=== PATIENT | female | born 1970 | race Caucasian/White ===

== ENCOUNTER 2019-05-07 16:32 | Inpatient (IN) | payer OTHER ==
[2019-05-07] MEDS ORDERED: IBUPROFEN 600 MG TABLET (FP) PO ONE ×2 (16:48→17:03)
--- NOTE | 2019-05-07 16:52 | PDOC ---
Rapid Medical Evaluation Chief Complaint: Cold Symptoms Time Seen by Provider: 05/07/19 16:48 Medical Evaluation: 05/07/19 16:49 Pt c/o: cough fever and back pain, + smoker Pt on brief exam: low grade temp, tachy, lcta Pt ordered for: Influenza and chest xray Pt to proceed to the ED Discharge Disposition - Diagnosis Fever, Asthmatic bronchitis - Discharge Dispostion Disposition: HOME Condition at time of disposition: Fair - Referrals - Patient Instructions - Post Discharge Activity
[2019-05-07] MEDS ORDERED: MAGNESIUM SULF 50% (8.12 MEQ/2 ML-1 GM VIAL) IVPB ONE (18:22)
[2019-05-07] MEDS ORDERED: DEXAMETHASONE SOD PHOSPHATE 20 MG/5 ML VIAL IVPB ONE (18:22)
[2019-05-07] MEDS ORDERED: SODIUM CHLORIDE 0.9% 500 ML INFUS.BAG IV ONE (18:22)
--- NOTE | 2019-05-07 18:25 | PDOC ---
History of Present Illness - General Chief Complaint: Cold Symptoms Stated Complaint: BACK PAIN/BLOOD IN SPUTUM/FEVER Time Seen by Provider: 05/07/19 16:48 - History of Present Illness Initial Comments: 05/07/19 18:24 48-year-old female with a past medical history of asthma presents for evaluation of cough and fever x5 days unrelieved with home nebulizers Past History - Past Medical History Allergies/Adverse Reactions: Allergies Allergy/AdvReac Type Severity Reaction Status Date / Time codeine Allergy Verified 05/07/19 16:50 Penicillins Allergy Verified 05/07/19 16:49 Asthma: Yes COPD: No - Surgical History Abdominal Surgery: Yes (rosa longoria) - Psycho Social/Smoking Cessation Hx Smoking History: Current every day smoker Number of Cigarettes Smoked Daily: 10 Information on smoking cessation initiated: Yes Hx Alcohol Use: No Drug/Substance Use Hx: No Review of Systems - Review of Systems Constitutional: Yes: Fever Respiratory: Yes: Cough Neurological: Yes: Dizziness *Physical Exam - Vital Signs Last Vital Signs Temp Pulse Resp BP Pulse Ox 100 F H 96 H 18 109/68 97 05/07/19 16:46 05/07/19 16:46 05/07/19 16:46 05/07/19 16:46 05/07/19 16:46 - Physical Exam Comments: 05/07/19 18:24 GENERAL: The patient is awake, alert, and fully oriented, in no acute distress. HEAD: Normal with no signs of trauma. EYES: sclera anicteric, conjunctiva clear. ENT: Ears normal NECK: Normal range of motion LUNGS: Diffuse wheezing bilaterally HEART: S1 and S2 without murmur, rub or gallop. ABDOMEN: Soft, nontender, normoactive bowel sounds. No guarding, no rebound. No masses. EXTREMITIES: Normal range of motion, no edema. No clubbing or cyanosis. No cords, erythema, or tenderness. NEUROLOGICAL: Cranial nerves II through XII grossly intact. Normal speech, normal gait. PSYCH: Normal mood, normal affect. SKIN: Warm, Dry, normal turgor, no rashes or lesions noted. ED Treatment Course - Medications Given in the ED: ED Medications Discontinued Medications Generic Name Dose Route Start Last Admin Trade Name Freq PRN Reason Stop Dose Admin Ibuprofen 600 mg 05/07/19 16:48 05/07/19 17:04 Motrin - PO 05/07/19 16:49 600 mg ONCE ONE Administration Medical Decision Making - Medical Decision Making 05/07/19 18:26 Patient is symptomatically hypotensive mildly tachycardic and febrile I will transfer to the main emergency room preliminary orders placed Discharge - Discharge Information Problems reviewed: Yes Clinical Impression/Diagnosis: Fever, Asthmatic bronchitis - Follow up/Referral - Patient Discharge Instructions - Post Discharge Activity
[2019-05-07] MEDS ORDERED: ALBUTEROL SO4 2.5/IPRATROPIUM 0.5 INH SOL 3 ML VIAL.NEB. NEB ONE (18:32)
--- NOTE | 2019-05-07 18:39 | PDOC ---
*Physical Exam - Vital Signs Last Vital Signs Temp Pulse Resp BP Pulse Ox 100 F H 96 H 18 109/68 97 05/07/19 16:46 05/07/19 16:46 05/07/19 16:46 05/07/19 16:46 05/07/19 16:46 - Physical Exam Comments: 05/07/19 20:05 Gen: aaox3, nad heent: MMM, posterior pharynx clear neck: no stridor, no lymphadenopathy heart:+s1s2 tachy lungs: wheezing diffusely abd: soft, nt/nd +bs ext: no c/c/e ED Treatment Course - LABORATORY CBC & Chemistry Diagram: 05/07/19 18:40 05/07/19 18:40 - Medications Given in the ED: ED Medications Discontinued Medications Generic Name Dose Route Start Last Admin Trade Name Freq PRN Reason Stop Dose Admin Ibuprofen 600 mg 05/07/19 16:48 05/07/19 17:04 Motrin - PO 05/07/19 16:49 600 mg ONCE ONE Administration Medical Decision Making - Medical Decision Making 05/07/19 18:38 pt upgraded from [facility] for eval of cough and fever x 1 week cxr clear flu neg labs and ivf pending 05/07/19 20:05 pt with wbc 12 diffuse wheezing despite 2 nebs will give a third received decadron and levaquin, ivf pending 3rd neb and mag 05/07/19 21:24 pt still with tachynea and wheezing will need admission for asthma exacerbation and bronchitis 05/07/19 21:[address] Small who accepts pt to service Discharge - Discharge Information Problems reviewed: Yes Clinical Impression/Diagnosis: Fever, Asthmatic bronchitis Condition: Fair - Admission Yes - Follow up/Referral Referrals: Balwinder Astorga [Primary Care Provider] - - Patient Discharge Instructions - Post Discharge Activity
[2019-05-07] MEDS: ALBUTEROL SO4 2.5/IPRATROPIUM 0.5 INH SOL 3 ML VIAL.NEB. NEB SCH ×5 (18:50→23:52)
[2019-05-07] MEDS ORDERED: DEXAMETHASONE SOD PHOSPHATE 4 MG/1 ML VIAL ONE (18:54)
[2019-05-07] MEDS ORDERED: DEXAMETHASONE SOD PHOSPHATE 10 MG/1 ML VIAL ONE (18:54)
[2019-05-07] MEDS ORDERED: MAGNESIUM SULF 50% (8.12 MEQ/2 ML-1 GM VIAL) ONE (18:55)
[2019-05-07 19:00] LABS: BASO % 0.5 % (0-2.0); EOS % 1.3 % (0-4.5); HEMATOCRIT 38.7 % (32.4-45.2); HEMOGLOBIN 12.8 GM/dL (10.7-15.3); LYMPH % 15.7 % (8-40); MCH 29.4 pg (25.7-33.7); MCHC 33.1 g/dl (32.0-36.0); MEAN CELL VOLUME 88.8 fl (80-96); MEAN PLT VOLUME 10.5 fl (7.5-11.1); MONO % 6.9 % (3.8-10.2); NEUT % 75.6 % (42.8-82.8); PLATELET COUNT 250 K/MM3 (134-434); RBC 4.36 M/mm3 (3.60-5.2); RDW 13.8 % (11.6-15.6); WHITE BLOOD COUNT 12.9 K/mm3 (4.0-10.0)
[2019-05-07 19:35] LABS: ALBUMIN 4.1 g/dl (3.4-5.0); BILIRUBIN,TOTAL 0.5 mg/dL (0.2-1); BLOOD UREA NITROGEN 16.8 mg/dL (7-18); CALCIUM 9.1 mg/dL (8.5-10.1); CREATININE 0.8 mg/dL (0.55-1.3); TOT PROT 7.5 g/dl (6.4-8.2)
--- NOTE | 2019-05-07 21:48 | HP ---
Admitting History and Physical - Primary Care Physician PCP: Wong Small - Admission History of Present Illness: 48-year-old female with a past medical history of asthma presents for evaluation of cough and fever x5 days unrelieved with home nebulizers - Past Medical History Pulmonary: Yes: Asthma - Smoking History Smoking history: Current every day smoker Aproximately how many cigarettes per day: 10 - Alcohol/Substance Use Hx Alcohol Use: No Home Medications - Allergies Allergies/Adverse Reactions: Allergies Allergy/AdvReac Type Severity Reaction Status Date / Time codeine Allergy Verified 05/07/19 16:50 Penicillins Allergy Verified 05/07/19 16:49 - Home Medications Home Medications: Ambulatory Orders Albuterol Sulfate Inhaler - [Ventolin HFA Inhaler -] 1 puff IH BID 05/08/19 Cetirizine HCl [Zyrtec -] 10 mg PO DAILY 05/08/19 Levofloxacin [Levaquin] 500 mg PO DAILY #5 tablet 05/08/19 Prednisone 10 mg PO ASDIR #30 tablet 05/08/19 Physical Examination Vital Signs: Vital Signs Temperature 100 F H 05/07/19 16:46 Pulse Rate 96 H 05/07/19 16:46 Respiratory Rate 18 05/07/19 16:46 Blood Pressure 109/68 05/07/19 16:46 O2 Sat by Pulse Oximetry (%) 97 05/07/19 16:46 Constitutional: Yes: No Distress HENT: Yes: Atraumatic Neck: Yes: Supple Cardiovascular: Yes: Regular Rate and Rhythm Gastrointestinal: Yes: Normal Bowel Sounds Extremities: Yes: WNL Edema: No Neurological: Yes: Alert, Oriented Labs: CBC, BMP 05/07/19 18:40 05/07/19 18:40 Problem List - Problems (1) Asthmatic bronchitis Code(s): J45.909 - UNSPECIFIED ASTHMA, UNCOMPLICATED Assessment/Plan Laboratory Tests 05/07/19 05/07/19 05/07/19 16:57 18:40 18:40 WBC 12.9 H RBC 4.36 Hgb 12.8 Hct 38.7 MCV 88.8 MCH 29.4 MCHC 33.1 RDW 13.8 Plt Count 250 MPV 10.5 Absolute Neuts (auto) 9.8 H Neutrophils % 75.6 Lymphocytes % 15.7 Monocytes % 6.9 Eosinophils % 1.3 Basophils % 0.5 Nucleated RBC % 0 Sodium 137 Potassium 5.0 Chloride 104 Carbon Dioxide 25 Anion Gap 8 BUN 16.8 Creatinine 0.8 Est GFR (CKD-EPI)AfAm 101.04 Est GFR (CKD-EPI)NonAf 87.18 Random Glucose 95 Calcium 9.1 Total Bilirubin 0.5 AST 31 ALT 19 Alkaline Phosphatase 104 Total Protein 7.5 Albumin 4.1 Influenza A (Rapid) Negative Influenza B (Rapid) Negative Active Medications Generic Name Dose Route Start Last Admin Trade Name Freaustin PRN Reason Stop Dose Admin Levofloxacin 500 mg in 100 mls @ 100 mls/hr 05/07/19 18:30 05/07/19 19:09 Levaquin 500 Mg Premixed Ivpb - IVPB 05/08/19 18:29 100 mls/hr DAILY RUBIO Administration Protocol Active Medications Generic Name Dose Route Start Last Admin Trade Name Haile PRN Reason Stop Dose Admin Albuterol Sulfate 1 amp 05/08/19 14:08 Ventolin 0.083% Nebulizer Soln - NEB Q4H PRN SHORT OF BREATH/WHEEZING Albuterol/Ipratropium 1 amp 05/08/19 16:00 05/08/19 17:30 Duoneb - NEB 1 amp RQID RUBIO Administration Methylprednisolone Sodium Succinate 40 mg 05/08/19 14:08 05/08/19 17:48 Solu-Medrol - IVPUSH 40 mg Q8H-IV RUBIO Administration
[2019-05-08] MEDS ORDERED: ALBUTEROL SO4 2.5/IPRATROPIUM 0.5 INH SOL 3 ML VIAL.NEB. NEB ONE ×2 (00:21→07:43)
[2019-05-08] MEDS: ALBUTEROL SO4 2.5/IPRATROPIUM 0.5 INH SOL 3 ML VIAL.NEB. NEB SCH ×5 (00:23→20:15)
[2019-05-08] MEDS ORDERED: methylPREDNISolone NA SUCC 40 MG/1 ML VIAL ONE ×2 (02:11→09:40)
[2019-05-08] MEDS: methylPREDNISolone NA SUCC 40 MG/1 ML VIAL IVPUSH SCH ×3 (02:16→17:48)
--- NOTE | 2019-05-08 13:34 | EKG ---
Test Reason : Blood Pressure : / mmHG Vent. Rate : 082 BPM Atrial Rate : 082 BPM P-R Int : 172 ms QRS Dur : 078 ms QT Int : 376 ms P-R-T Axes : 058 006 036 degrees QTc Int : 439 ms NORMAL SINUS RHYTHM NORMAL ECG NO PREVIOUS ECGS AVAILABLE Confirmed by RAAD CAMPOS MD ([id number]) on 05/08/2019 1:34:03 PM Referred By: Confirmed By:RAAD CAMPOS MD
[2019-05-08] MEDS ORDERED: ALBUTEROL SO4 0.083% IH SOL 2.5 MG/3 ML VIAL.NEB. NEB PRN (14:08)
--- NOTE | 2019-05-08 14:08 | CON.PULM ---
Consult Consult Specialty:: PULMONARY Referred by:: Dr Small Reason for Consultation:: shortness of breath - History of Present Illness Chief Complaint: shortness of breath History of Present Illness: 48yo female with h/o asthma since childhood who presents with worsening shortness of breath x 2 weeks. Had URI symptoms initially with fevers, chills, cough which improved but breathing got progressively worse. Used her nebulizer treatments without significant relief. She has never been hospitalized as an adult for asthma. Best peak flow 220. Started smoking cigarettes at age 22, smokes 6-7 cigarettes/day. - History Source History Provided By: Patient, Medical Record Limitations to Obtaining History: No Limitations - Past Medical History Pulmonary: Yes: Asthma - Alcohol/Substance Use Hx Alcohol Use: No - Smoking History Smoking history: Current every day smoker Have you smoked in the past 12 months: Yes Aproximately how many cigarettes per day: 10 Home Medications - Allergies Allergies/Adverse Reactions: Allergies Allergy/AdvReac Type Severity Reaction Status Date / Time codeine Allergy Verified 05/07/19 16:50 Penicillins Allergy Verified 05/07/19 16:49 - Home Medications Home Medications: Ambulatory Orders Albuterol Sulfate Inhaler - [Ventolin Hfa Inhaler -] 1 puff IH BID 05/08/19 Cetirizine HCl [Zyrtec -] 10 mg PO DAILY 05/08/19 Review of Systems - Review of Systems Constitutional: reports: Chills, Fever, Weakness Eyes: denies: Recent Change in Vision HENT: denies: Nasal Congestion, Throat Pain Neck: denies: Stiffness, Tenderness Cardiovascular: reports: Shortness of Breath. denies: Chest Pain, Edema, Palpitations Respiratory: reports: Cough, SOB on Exertion, Wheezing. denies: Hemoptysis Gastrointestinal: denies: Abdominal Pain, Nausea, Vomiting Genitourinary: denies: Dysuria, Hematuria Neurological: denies: Dizziness, Headache Endocrine: denies: Unexplained Weight Loss Physical Exam Vital Sings: Vital Signs Temperature 98.4 F 05/08/19 12:04 Pulse Rate 83 05/08/19 12:04 Respiratory Rate 20 05/08/19 12:04 Blood Pressure 109/76 05/08/19 12:04 O2 Sat by Pulse Oximetry (%) 97 05/08/19 12:04 Constitutional: Yes: Calm Eyes: Yes: Conjunctiva Clear, EOM Intact HENT: Yes: Atraumatic, Normocephalic Neck: Yes: Supple, Trachea Midline Cardiovascular: Yes: Regular Rate and Rhythm Respiratory: Yes: Rhonchi, Wheezes ...Clubbing: No Gastrointestinal: Yes: Normal Bowel Sounds, Soft. No: Tenderness Edema: No Neurological: Yes: Alert, Oriented Labs: CBC, BMP 05/07/19 18:40 05/07/19 18:40 Imaging - Results Chest X-ray: Report Reviewed, Image Reviewed (no infiltrates) Problem List - Problems (1) Asthmatic bronchitis Code(s): J45.909 - UNSPECIFIED ASTHMA, UNCOMPLICATED Assessment/Plan Acute Asthma Exacerbation Acute Bronchitis - IV medrol - can likely change to PO prednisone 40mg daily in AM if continues to improve - inhaled bronchodilators standing and PRN - monitor peak flow - DVT prophylaxis - outpt PFTs and f/u Thank you for this consult Ze Baca MD
--- NOTE | 2019-05-08 18:05 | PN ---
Progress Note, Physician History of Present Illness: 48-year-old female with a past medical history of asthma presents for evaluation of cough and fever x5 days unrelieved with home nebulizers - Current Medication List Current Medications: Active Medications Albuterol Sulfate (Ventolin 0.083% Nebulizer Soln -) 1 amp NEB Q4H PRN PRN Reason: SHORT OF BREATH/WHEEZING Albuterol/Ipratropium (Duoneb -) 1 amp NEB RQID RUBIO Levofloxacin (Levaquin 500 Mg Premixed Ivpb -) 500 mg in 100 mls @ 100 mls/hr IVPB DAILY RUBIO; Protocol Stop: 05/08/19 18:29 Last Admin: 05/08/19 09:56 Dose: 100 mls/hr Methylprednisolone Sodium Succinate (Solu-Medrol -) 40 mg IVPUSH Q8H-IV RUBIO Last Admin: 05/08/19 17:48 Dose: 40 mg - Objective Vital Signs: Vital Signs Temperature 98.4 F 05/08/19 12:04 Pulse Rate 83 05/08/19 12:04 Respiratory Rate 20 05/08/19 12:04 Blood Pressure 109/76 05/08/19 12:04 O2 Sat by Pulse Oximetry (%) 97 05/08/19 12:04 HENT: Yes: Atraumatic Neck: Yes: Supple Cardiovascular: Yes: Regular Rate and Rhythm Respiratory: Yes: Wheezes Gastrointestinal: Yes: Normal Bowel Sounds Extremities: Yes: WNL Edema: No Peripheral Pulses WNL: Yes Neurological: Yes: Alert, Oriented Labs: CBC, BMP 05/07/19 18:40 05/07/19 18:40 Problem List - Problems (1) Asthmatic bronchitis Assessment/Plan: iv steroids duo nebs abx to cover for bronchitis Code(s): J45.909 - UNSPECIFIED ASTHMA, UNCOMPLICATED (2) Fever Assessment/Plan: on abx cxs negative to date Code(s): R50.9 - FEVER, UNSPECIFIED
[2019-05-09] MEDS: methylPREDNISolone NA SUCC 40 MG/1 ML VIAL IVPUSH SCH ×2 (03:41→10:32)
[2019-05-09] MEDS ORDERED: MAG HYDROX/AL HYDROX/SIMETH 30 ML UNIT-DOSE CUP PO ONE (04:05)
[2019-05-09] MEDS: ALBUTEROL SO4 0.083% IH SOL 2.5 MG/3 ML VIAL.NEB. NEB SCH ×2 (08:45→11:55)
[2019-05-09] MEDS: ALBUTEROL SO4 2.5/IPRATROPIUM 0.5 INH SOL 3 ML VIAL.NEB. NEB SCH ×2 (08:45→11:55)
[2019-05-09 11:05] VITALS: BP 117/72; PULSE 70; TEMP 98
--- NOTE | 2019-05-09 11:23 | DS ---
Physical Examination Vital Signs: Vital Signs Temperature 98 F 05/09/19 09:00 Pulse Rate 70 05/09/19 09:00 Respiratory Rate 20 05/09/19 09:00 Blood Pressure 117/72 05/09/19 09:00 O2 Sat by Pulse Oximetry (%) 97 05/08/19 21:00 Labs: CBC, BMP 05/07/19 18:40 05/07/19 18:40 Discharge Summary Problems reviewed: Yes Reason For Visit: ASTHMATIC BRONCHITIS Current Active Problems Asthmatic bronchitis (Acute) Fever (Acute) Condition: Fair - Instructions Referrals: Balwinder Astorga [Primary Care Provider] - Ze Baca MD, MD [Staff Physician] - - Home Medications Comprehensive Discharge Medication List: Ambulatory Orders Albuterol Sulfate Inhaler - [Ventolin HFA Inhaler -] 1 puff IH BID 05/08/19 Cetirizine HCl [Zyrtec -] 10 mg PO DAILY 05/08/19 Levofloxacin [Levaquin] 500 mg PO DAILY #5 tablet 05/08/19 Prednisone 10 mg PO ASDIR #30 tablet 05/08/19
--- NOTE | 2019-05-09 12:29 | PN ---
Progress Note (short form) - Note Progress Note: PULMONARY VSS/AFEBRILE Constitutional: Yes: Calm Eyes: Yes: Conjunctiva Clear, EOM Intact HENT: Yes: Atraumatic, Normocephalic Neck: Yes: Supple, Trachea Midline Cardiovascular: Yes: Regular Rate and Rhythm Respiratory: Yes: Clear ...Clubbing: No Gastrointestinal: Yes: Normal Bowel Sounds, Soft. No: Tenderness Edema: No Neurological: Yes: Alert, Oriented Labs: noted Imaging - Results Chest X-ray: Report Reviewed, Image Reviewed (no infiltrates) Problem List - Problems (1) Asthmatic bronchitis Code(s): J45.909 - UNSPECIFIED ASTHMA, UNCOMPLICATED Acute Asthma Exacerbation Acute Bronchitis - change to PO prednisone 40mg daily and taper as an outpatient - inhaled bronchodilators standing and PRN - monitor peak flow - DVT prophylaxis - outpt PFTs and f/u - No objection to discharge Jovanni VELAZQUEZ MD
== END 2019-05-09 15:17 | disposition home or self-care (01) | DRG 203 ==
LOC: JER 16:32 → JERBED 21:25 → J6S 05-08 11:47
PROVIDERS: ADMIT Internal Medicine; ATTEND Internal Medicine
DX: J45.901 Unspecified asthma with (acute) exacerbation (principal); J20.9 Acute bronchitis, unspecified; R50.9 Fever, unspecified; F17.210 Nicotine dependence, cigarettes, uncomplicated
CPT/HCPCS: 36415; 71046-TC-FY; 80053; 85025; 87040; 87804; 93005; 93010; 94640; 99285-25

== ENCOUNTER 2021-03-01 14:27 | Emergency (ER) | payer OTHER ==
[2021-03-01 15:02] VITALS: BMI 27.1
[2021-03-01 16:14] VITALS: BP 123/72; PULSE 79; TEMP 98.5
== END 2021-03-01 16:21 | disposition home or self-care (01) ==
LOC: JER 14:27
DX: R53.81 Other malaise (principal); R09.81 Nasal congestion
CPT/HCPCS: 71046-TC-FY; 99284-25; C9803; U0003; U0005

== ENCOUNTER 2021-08-29 18:06 | Emergency (ER) | payer OTHER ==
[2021-08-29 18:24] VITALS: BP 108/70; PULSE 88; TEMP 98.2; BMI 30.9
== END 2021-08-29 21:45 | disposition home or self-care (01) ==
LOC: JERFT 18:06 → JER 18:06 → JERFT 21:45
DX: S02.2XXA Fracture of nasal bones, initial encounter for closed fracture (principal); W22.8XXA Striking against or struck by other objects, initial encounter
CPT/HCPCS: 70486-TC; 99284-25

== ENCOUNTER 2022-01-25 16:09 | Emergency (ER) | payer OTHER ==
[2022-01-25 16:25] VITALS: TEMP 98.3; BMI 31.8
[2022-01-25] MEDS ORDERED: SODIUM CHLORIDE 0.9% 500 ML INFUS.BAG IV ONE (17:14)
[2022-01-25] MEDS ORDERED: KETOROLAC TROMETHAMINE 30 MG/1 ML VIAL IVPUSH ONE (17:14)
[2022-01-25] MEDS ORDERED: KETOROLAC TROMETHAMINE 30 MG/1 ML VIAL ONE (17:33)
[2022-01-25 18:45] LABS: BASO % 0.4 % (0-2.0); EOS % 1.1 % (0-4.5); HEMATOCRIT 37.9 % (32.4-45.2); HEMOGLOBIN 12.6 GM/dL (10.7-15.3); MCH 29.6 pg (25.7-33.7); MCHC 33.4 g/dl (32.0-36.0); MEAN CELL VOLUME 88.7 fl (80-96); MEAN PLT VOLUME 10.1 fl (7.5-11.1); MONO % 9.2 % (3.8-10.2); NEUT % 65.3 % (42.8-82.8); PLATELET COUNT 209 10^3/uL (134-434); RBC 4.27 M/mm3 (3.60-5.2); RDW 13.8 % (11.6-15.6); WHITE BLOOD COUNT 8.5 K/mm3 (4.0-10.0)
[2022-01-25 18:51] LABS: ALBUMIN 3.8 g/dl (3.4-5.0); BLOOD UREA NITROGEN 16.7 mg/dL (7-18); CALCIUM 8.9 mg/dL (8.5-10.1)
[2022-01-25 18:53] LABS: CREATININE 0.7 mg/dL (0.55-1.3)
[2022-01-25 18:55] LABS: BILIRUBIN,TOTAL 0.5 mg/dL (0.2-1); TOT PROT 7.5 g/dl (6.4-8.2)
[2022-01-25 19:39] LABS: EPI CELLS 4 /uL (0-25.1); HYALINE CASTS 1 /uL (0-3.1); PH,URINE 5.5 (5.0-8.0); URINE APPEARANCE CLEAR; URINE BACTERIA 13 /uL (0-1359); URINE BILIRUBIN NEGATIVE (NEGATIVE); URINE COLOR YELLOW; URINE GLUCOSE (UA) NEGATIVE (NEGATIVE); URINE KETONE NEGATIVE (NEGATIVE); URINE LEUK ESTERASE NEGATIVE (NEGATIVE); URINE NITRITE NEGATIVE (NEGATIVE); URINE PROTEIN NEGATIVE (NEGATIVE); URINE RBC 5 /uL (0-23.9); URINE UROBILINOGEN 0.2 mg/dL (0.2-1.0); URINE WBC 6 /uL (0-25.8)
[2022-01-25 19:55] VITALS: BP 96/56; PULSE 79
[2022-01-25] MEDS ORDERED: metroNIDAZOLE 250 MG TABLET PO ONE (20:34)
[2022-01-25] MEDS ORDERED: CIPROFLOXACIN 500 MG TABLET (RESTRICTED TO ID) PO ONE (20:34)
[2022-01-25] MEDS ORDERED: metroNIDAZOLE 250 MG TABLET ONE (21:05)
== END 2022-01-25 21:20 | disposition home or self-care (01) ==
LOC: JER 16:09
PROC: 3E033GC Introduction of Other Therapeutic Substance into Peripheral Vein, Percutaneous Approach (ICD-10-PCS; principal; 2022-01-25)
DX: K57.92 Diverticulitis of intestine, part unspecified, without perforation or abscess without bleeding (principal)
CPT/HCPCS: 36415; 74177-TC; 80053; 81003; 83690; 85025; 87086; 87186; 99285-25

== ENCOUNTER 2022-05-22 10:15 | Emergency (ER) | payer OTHER ==
[2022-05-22 10:53] VITALS: BP 107/72; PULSE 96; RESP 18; TEMP 99.5; BMI 32.2
[2022-05-22] MEDS ORDERED: ACETAMINOPHEN 500 MG TABLET (FP) PO ONE (11:35)
== END 2022-05-22 13:04 | disposition home or self-care (01) ==
LOC: JER 10:15
DX: J06.9 Acute upper respiratory infection, unspecified (principal)
CPT/HCPCS: 0241U-QW; 71046-TC-FY; 99284-25